=== PATIENT | male | born 1945 | race Caucasian/White ===

== ENCOUNTER 2023-12-20 21:39 | Inpatient (IN) | payer OTHER, MEDICARE ==
[~2023-12-20] VITALS: Ht 177.8 cm; Wt 75.7 kg
[~2023-12-20 21:39] MED LIST: DOXYCYCLINE HY100 MG PO; PREDNISONE20 MG PO
[2023-12-20 21:53] LABS: BASOPHILS 0.2 % (0-2); EOSINOPHILS 1.3 % (0-6); HEMATOCRIT 36.1 % (35.0-50.0); HEMOGLOBIN 11.6 g/dL (12.0-18.0); LYMPHOCYTES 6.9 % (24-44); MCH 31.6 (27-36); MCHC 32.2 g/dl (30-36); MONOCYTES 6.1 % (0-12); NEUTROPHILS 85.5 % (39-80); PLATELET COUNT 128 K/uL (140-440); RBC 3.68 M/ul (4.3-5.7)
[2023-12-20] MEDS ORDERED: METOPROLOL TARTRATE 5 MG/5 ML VIAL IV ONE (22:00)
[2023-12-20] MEDS ORDERED: FUROSEMIDE 100 MG/10 ML VIAL IV ONE (22:00)
[2023-12-20] MEDS ORDERED: ELIQUIS2.5 MG PO (22:07)
[2023-12-20] MEDS ORDERED: PREDNISONE10 MG PO (22:07)
[2023-12-20 22:14] LABS: LACTIC ACID, BLOOD 2.1 mmol/L (0.4-2.0)
[2023-12-20] MEDS ORDERED: IBUPROFEN 600 MG TAB PO ONE (22:15)
[2023-12-20] MEDS ORDERED: ACETAMINOPHEN 500 MG TAB PO ONE (22:15)
[2023-12-20] MEDS ORDERED: CEFTRIAXONE/SODIUM CHLORIDE 2 GM/100 ML PIGGYBACK IV ONE (22:15)
[2023-12-20 22:16] LABS: HCO3, BLOOD GAS 51.5 mmol/L (22-26); O2 SATURATION, BLOOD GAS 96.8 % (95.0-100.0); PCO2, BLOOD GAS 82.9 mmHg (35-45); PH, BLOOD GAS 7.41 (7.35-7.45); PO2, BLOOD GAS 81 mmHg (80-100); TOTAL CO2, BLOOD GAS 53.9
[2023-12-20 22:20] LABS: OXYGEN RECEIVED, BLOOD GAS 12L
[2023-12-20 22:21] LABS: ALBUMIN 2.7 g/dL (3.4-5.0); ALBUMIN/GLOBULIN RATIO 0.77 (1.1-2.4); BILIRUBIN, TOTAL 0.3 ng/dL (0.2-1.0); BUN/CREATININE RATIO 27.05 (6.0-28.6); CALCIUM 8.5 mg/dL (8.5-10.1); CREATININE, SERUM 0.85 mg/dL (0.70-1.30); POTASSIUM 3.8 mmol/L (3.5-5.1); PROTEIN, TOTAL 6.2 g/dL (6.4-8.2)
[2023-12-20 22:22] LABS: ANION GAP -3.2 (7-21)
[2023-12-20 22:30] LABS: INFLUENZA B NAA NEGATIVE (NEGATIVE); RESPIRATORY SYNCYTIAL VIR NAA NEGATIVE (NEGATIVE)
[2023-12-20] MEDS ORDERED: AZITHROMYCIN/DEXTROSE 500 MG/250 ML BAG IV ONE (22:45)
[2023-12-20] MEDS ORDERED: methylPREDNISolone SOD SUCC 125 MG/2 ML VIAL IV ONE (23:00)
[2023-12-20] MEDS ORDERED: ondansetron HCL 4 MG/2 ML VIAL IV PRN (23:15)
[2023-12-20] MEDS ORDERED: ALBUTEROL SULFATE 0.083% 3 ML VIAL INH PRN (23:15)
[2023-12-20] MEDS ORDERED: LIDOCAINE 2% VISCOUS 6 ML SYR TOP ONE (23:15)
[2023-12-20] MEDS ORDERED: ACETAMINOPHEN 325 MG TAB PO PRN (23:15)
[2023-12-20 23:38] VITALS: BP 134/73
--- NOTE | 2023-12-20 23:40 | NUR ---
PATIENT ARRIVED TO THE UNIT VIA STRETCHER. PATIENT MOVED OVER TO BED WITH ASSIST FOR CORD MANAGEMENT. PATIENT TOLERATING 5L OXYMASK. APPEARS MILDLY SOB WITH ACTIVITY. LUNG SOUNDS ARE COARSE WITH EXP WHEEZE. VS STABLE. PATIENT AAOX4. ABD IS MILDLY DISTENDED, NON TENDER. BOWEL SOUNDS ACTIVE. 2+ PITTING EDEMA NOTED IN GURPREET LOWER EXTREMITITES. PATIENT ABLE TO ANSWER SOME HISTORY QUESTIONS BUT DEFERS MANY QUESTIONS TO HIS SON, WHO IS NOT CURRENTLY HERE.
[2023-12-21] VITALS (15 sets, daily range): BP systolic 133–175; BP diastolic 57–79
--- NOTE | 2023-12-21 01:05 | NUR ---
PATIENT UP AND DOWN TO THE BATHROOM MULTIPLE TIMES TO VOID. PATIENT REQUIRES INCREASED O2 WITH ACTIVITY; UP TO 6L. AT REST PATIENT CURRENTLY ON 4L NC TO MAINTAIN Sp02 88-92%. RR 20-22. PATIENT NOW RESTING IN BED WITH HOB ELEVATED AND EYES CLOSED. CALL LIGHT IN REACH.
--- NOTE | 2023-12-21 02:29 | NUR ---
PT UP TO BSC, SBA. PT TOLERATED FAIR WITH SOB ONCE BACK IN BED. PT STATES NO OTHER NEEDS AT THIS STEPHEN. CALL LIGHT IN REACH.
--- NOTE | 2023-12-21 03:30 | NUR ---
PATIENT RESTING WITH EYES CLOSED. TOLERATING 5L NC. VS STABLE. CALL LIGHT IN REACH.
--- NOTE | 2023-12-21 05:00 | NUR ---
PATIENT UP TO THE BSC TO VOID. PATIENT TOLERATED WELL. TURNED TO 5L NC FOR ACTIVITY. PATIENT RETURNED TO BED. TOLERATING 3L NC. LUNG SOUNDS ARE TIGHT THROUGHOUT. PATIENT OFFERED A NEB TREATMENT, WHICH HE AGREES TO. RT CALLED. PATIENT APPEARS LESS SOB THAN PREVIOUSLY WHEN UP OUT OF BED. VS STABLE. CALL LIGHT IN REACH.
[2023-12-21 05:08] LABS: BASOPHILS 0.2 % (0-2); EOSINOPHILS 0.2 % (0-6); HEMATOCRIT 34.5 % (35.0-50.0); HEMOGLOBIN 11.2 g/dL (12.0-18.0); LYMPHOCYTES 3.5 % (24-44); MCH 31.6 (27-36); MCHC 32.6 g/dl (30-36); MCV 96.9 fl (81-99); MONOCYTES 2.3 % (0-12); NEUTROPHILS 93.8 % (39-80); PLATELET COUNT 117 K/uL (140-440); RBC 3.56 M/ul (4.3-5.7); RDW 15.7 (10.5-15.0)
[2023-12-21 05:38] LABS: ALBUMIN 2.5 g/dL (3.4-5.0); ALBUMIN/GLOBULIN RATIO 0.78 (1.1-2.4); BILIRUBIN, TOTAL 0.4 ng/dL (0.2-1.0); BUN/CREATININE RATIO 23.33 (6.0-28.6); CALCIUM 8.3 mg/dL (8.5-10.1); CREATININE, SERUM 0.9 mg/dL (0.70-1.30); MAGNESIUM 1.9 mg/dL (1.8-2.4); POTASSIUM 3.9 mmol/L (3.5-5.1); PROTEIN, TOTAL 5.7 g/dL (6.4-8.2)
[2023-12-21 05:39] LABS: ANION GAP -4.1 (7-21)
--- NOTE | 2023-12-21 07:10 | NUR ---
PATIENT IS SITTING UPRIGHT IN BED WITH EYES OPEN AND RESPIRATIONS ARE EVEN AND UNLABORED. REPORT RECEIVED FROM GRACE HUTCHINS. CALL LIGHT AND PERSONAL BELONGINGS ARE WITHIN REACH.
[2023-12-21] MEDS ORDERED: ALBUTEROL SULFATE 0.083% 3 ML VIAL INH PRN (07:30)
[2023-12-21] MEDS ORDERED: ALBUTEROL/IPRATROPIUM 3 ML NEB INH SCH ×2 (08:00)
--- NOTE | 2023-12-21 08:13 | NUR ---
PATIENT UP TO BSC, PT VOIDED 200, BACK TO BED. ICE WATER GIVEN, PT'S BREAKFAST SETUP. VITALS OBTAINED. PT HAS NO OTHER REQUESTS AT THIS TIME. CALL LIGHT WITHIN REACH.
[2023-12-21] MEDS ORDERED: CEFTRIAXONE/SODIUM CHLORIDE 2 GM/100 ML PIGGYBACK IV SCH (09:00)
[2023-12-21] MEDS ORDERED: AZITHROMYCIN 500 MG in DEXTROSE 5% 250 ML IV SCH ×2 (09:00→21:00)
[2023-12-21] MEDS ORDERED: ondansetron HCL 4 MG/2 ML VIAL IV PRN (09:30)
[2023-12-21] MEDS ORDERED: ACETAMINOPHEN 325 MG TAB PO PRN (09:30)
--- NOTE | 2023-12-21 09:45 | NUR ---
PATIENT IS LYING IN BED WITH THE HOB ELEVATED AND SPEAKING WITH SOMEONE ON THE PHONE. PATIENT GOT OFF THE PHONE. PATIENT IS ALERT AND ORIENTED TIMES FOUR. PATIENT IS ON 4 L NC AND IS CHRONICALLY ON 5 L NC. PATIENT HAS A COUGH BUT IT IS NON-PRODUCTIVE. PATIENT WITH CRAACKLES IN THE BASES BILATERALLY WITH DIMINISHED LUNG SOUNDS IN THE UPPER LOBES BILATERALLY. PATIENT WITH NO COMPLAINTS OF SOB. PATIENT WITH NORMAL S1 AND S2 ON AUSCULTATION. PATIENT IS IN SINUS RHYTHM ON THE ELECTRONICS ENGINEERING PROFESSOR. PATIENT WITH STRONG RADIAL AND PEDAL PULSES BILATERALLY. CAPILLARY REFILL IN THE UPPER AND LOWER EXTREMITIES IS LESS THAN 3 SECONDS BILATERALLY. PATIENT WITH 2+ PITTING EDEMA IN THE BILATERAL ANKLES/FEET. PATIENT IS ON A REGULAR DIET AND BOWEL TONES ARE ACTIVE IN ALL FOUR QUADRANTS. SENSATION INTACT WITH NUMBNESS AND TINGLING IN THE HANDS AND FEET. PATIENT STATES THIS IS NORMAL FOR HIME. IV SITE FLUSHED WITH 10 ML NORMAL SALINE AND IS SALINE LOCKED. IV DRESSING IS CLEAN, DRY, AND INTACT. PATIENT WITH NO COMPLAINTS OF PAIN. SKIN WITH SCATTERED BRUISING NOTED WITH SMALL SCARS ON THE NOSE/FACE FROM PREVIOUS SKIN CANCER TREATMENT. PATIENT STATED NO FURTHER NEEDS AT THIS TIME. CALL LIGHT AND PERSONAL BELONGINGS ARE WITHIN REACH.
--- NOTE | 2023-12-21 10:29 | NUR ---
PATIENT IS LYING IN BED WITH HOB ELEVATED AND IS WATCHING TV AT THIS TIME. PATIENT WITH A VISITOR IN THE ROOM AT THIS TIME. CALL LIGHT AND PERSONAL BELONGINGS ARE WITHIN REACH.
[2023-12-21] MEDS ORDERED: IPRAT-ALBUT 0.5-3 ML INH (10:54)
[2023-12-21] MEDS ORDERED: ELIQUIS5 MG PO (10:55)
[2023-12-21] MEDS ORDERED: LIPITOR20 MG PO (10:55)
[2023-12-21] MEDS ORDERED: CARDIZEM CD180 MG PO (10:55)
[2023-12-21] MEDS ORDERED: ADVAIR 500-501 EACH INH (10:56)
[2023-12-21] MEDS ORDERED: OMEPRAZOLE20 MG PO (10:57)
[2023-12-21] MEDS ORDERED: NEURONTIN600 MG PO (10:57)
[2023-12-21] MEDS ORDERED: FLOMAX0.4 MG PO (10:58)
[2023-12-21] MEDS ORDERED: VENTOLIN HFA18 GM INH (10:59)
[2023-12-21] MEDS ORDERED: SPIRIVA RESPIMAT4 GM INH (10:59)
--- NOTE | 2023-12-21 11:00 | NUR ---
MED REC COMPLETE
--- NOTE | 2023-12-21 11:22 | NUR ---
PATIENT IS BACK TO BED AFTER USING THE BEDSIDE COMMODE. PATIENT VOID 200 ML YELLOW URINE AND HAD A MEDIUM AND FORMED BOWEL MOVEMENT. PATIENT STATED NO FURTHER NEEDS WHEN ASKED BY RN. CALL LIGHT AND PERSONAL BELONGINGS ARE WITHIN REACH.
[2023-12-21] MEDS ORDERED: PHARMACY RENAL DOSE ADJUSTMENT 1 DOSE MISC PO SCH (12:00)
--- NOTE | 2023-12-21 12:10 | NUR ---
RT IS IN THE ROOM AT THIS TIME AND DOING A BREATHING TREATMENT. RN SET UP THE PATIENT LUNCH TRAY IN THE ROOM. PATIENT STATED NO NEEDS AT THIS TIME., CALL LIGHT AND PERSONAL BELONGINGS ARE WITHIN REACH.
--- NOTE | 2023-12-21 13:17 | NUR ---
PATIENT IS LYING IN BED WITH EYES CLOSED AND RESPIRATIONS ARE EVEN AND UNLABORED. CALL LIGHT AND PERSONAL BELONGINGS ARE WITHIN REACH.
--- NOTE | 2023-12-21 14:05 | NUR ---
VITAL SIGNS TAKEN AND DOCUMENTED IN THE CHART. PATIENT IS LYING IN BED WITH EYES CLOSED AND RESPIRATIONS ARE EVEN AND UNLABORED. CALL LIGHT AND PERSONAL BELONGINGS ARE WITHIN REACH.
--- NOTE | 2023-12-21 14:54 | NUR ---
REPORT GIVEN TO GRACE WELCH FOR PATIENT TO TRANSFER TO THE MEDICAL-SURGICAL FLOOR.
--- NOTE | 2023-12-21 15:10 | NUR ---
BED BATH WIPE DOWN AND SHOWER CAP COMPLETE PRIOR TO TRANSFERRING PATIENT TO THE MEDICAL SURICAL UNIT. PATIENT TRANSFERRED TO THE FLOOR VIA THE CHAIR WITH A FRESH GOWN ON. PATIENT BELONGINGS RETURNED. PATIENT STATED NO FURTHER NEEDS TO RN WHEN ARRIVED TO ROOM 121. RN RETURNED TO THE CRITICAL CARE UNIT.
[2023-12-21] MEDS ORDERED: dilTIAZem HCL 180 MG CAPCR PO SCH (15:12)
--- NOTE | 2023-12-21 15:15 | NUR ---
PT ARRIVES TO ROOM IN CHAIR, RECEIVED REPORT FROM GRACE MART. PT ON TELE #6 PER ORDER. PT AMBULATES TO RESTROOM WITH SBA, BACK UP TO CHAIR AFTER RESTROOM. PT ON 6L O2 COMING TO ROOM. PT DENIES SOB. CHAIR ALARM ON FOR SAFETY. LUNG SOUNDS DIMINISHED IN THE BASES, FINE CRACKLES PRESENT ON L UPPER LOBE, CLEAR IN R UPPER LOBE. PT STATES NO NEEDS AT THIS TIME. CALL LIGHT WITHIN REACH.
--- NOTE | 2023-12-21 16:38 | NUR ---
RT AT THE BEDSIDE WORKING WITH PT. PT FAMILY AT THE BEDSIDE. PT DENIES ANY NEEDS AT THIS TIME, CALL LIGHT WITHIN REACH.
--- NOTE | 2023-12-21 17:30 | NUR ---
PT TELE READS HR IN 140s, THIS RN TO BEDSIDE. PT DENIES CHEST PAIN, SOB, FEELING OF PALPATATIONS. TELE READS AFIB RYTHYM AT THIS TIME. OTHER VSS AT THIS TIME. HR DECREASES TO 110-120 FOR APPROXIMATELY 5 MINUTES. HR INCREASES TO 120-130s, THIS RN CALLS DR. TAPIA WITH UPDATE ON PT STATUS. MD STATES TO GET EKG AND STATES HE WILL BE AT BEDSIDE TO ASSESS.
[2023-12-21] MEDS ORDERED: METOPROLOL TARTRATE 5 MG/5 ML VIAL ONE (18:07)
[2023-12-21] MEDS ORDERED: METOPROLOL TARTRATE 5 MG/5 ML VIAL IV ONE (18:15)
[2023-12-21] MEDS ORDERED: MAGNESIUM SULFATE 2 GM/50 ML BAG IV ONE (18:15)
[2023-12-21] MEDS ORDERED: POTASSIUM CHLORIDE 10 MEQ TABCR PO ONE (18:15)
--- NOTE | 2023-12-21 19:10 | NUR ---
RECIEVED REPORT FROM GRACE WELCH. PATIENT AWAKE IN BED. IMAGING IN ROOM PERFORMING ECHO.
--- NOTE | 2023-12-21 20:26 | NUR ---
IN ROOM TO ADMINSTER MEDICATIONS, SEE E-MAR. ASSESSMENT COMPLETED. PATIENT RESTING IN BED. PT ON 3L VIA NC. TELE #[address] SINUS RHYTHM. PATIENT DENIES ANY PAIN. PATIENT DENIES ANY ADDITIONAL NEEDS AT THIS TIME. CALL LIGHT IN REACH. BED ALARM ACTIVE.
[2023-12-21] MEDS ORDERED: methylPREDNISolone SOD SUCC 125 MG/2 ML VIAL IV SCH (21:00)
[2023-12-21] MEDS ORDERED: GABAPENTIN 300 MG CAP PO SCH (21:00)
[2023-12-21] MEDS ORDERED: TAMSULOSIN HCL 0.4 MG CAP PO SCH (21:00)
[2023-12-21] MEDS ORDERED: APIXABAN 5 MG TAB PO SCH (21:00)
[2023-12-21] MEDS ORDERED: ATORVASTATIN 20 MG TAB PO SCH (21:00)
--- NOTE | 2023-12-21 21:54 | EKG ---
[facility] [address] [facility] [place], [place] [address] Signed Sinus tachycardia with premature supraventricular complexes Right bundle branch block Left anterior fascicular block Bifascicular block Septal infarct , age undetermined Abnormal ECG No previous ECGs available Confirmed by Jayson Tapia MD () on 12/21/2023 9:54:36 PM Electronically Signed By: JAYSON TAPIA MD 12/21/23 2154 PATIENT NAME: ODESSA MUÑOZ Electrocardiogram DATE OF : 49 PHYSICIAN: JAYSON TAPIA MD REPORT #: [id number] REPORT IS CONFIDENTIAL AND NOT TO BE RELEASED WITHOUT AUTHORIZATION
--- NOTE | 2023-12-21 22:02 | NUR ---
IN ROOM TO ADMINSTER MEDICATIONS, SEE E-MAR. PATIENT REQUESTS TO USE BATHROOM. PATIENT AMBULATES TO THE BATHROOM AND VOIDS WITHOUT DIFFICULTY. PATIENT RETURNS TO BED. PATIENT ON 3L VIA NC. PATIENT DENIES ADDITIONAL NEEDS AT THIS TIME. CALL LIGHT IN REACH. BED ALARM ACTIVE.
--- NOTE | 2023-12-21 22:02 | EKG ---
[facility] [address] [facility] [place] [address] Signed Atrial fibrillation with rapid ventricular response Left axis deviation Right bundle branch block Abnormal ECG When compared with ECG of 20-DEC-2023 21:46, Atrial fibrillation has replaced Sinus rhythm Criteria for Septal infarct are no longer present ST now depressed in Inferior leads Confirmed by Jayson Tapia MD () on 12/21/2023 10:02:40 PM Electronically Signed By: JAYSON TAPIA MD 12/21/232201 PATIENT NAME: ODESSA MUÑOZ Electrocardiogram DATE OF : 49 PHYSICIAN: JAYSON TAPIA MD REPORT #: [id number] REPORT IS CONFIDENTIAL AND NOT TO BE RELEASED WITHOUT AUTHORIZATION
--- NOTE | 2023-12-21 23:30 | NUR ---
CONTACTED PROVIDER FOR CLARIFICATION ON LOPRESSOR ORDER. TELEPHONE ORDER RECIEVED, VERIFIED BY READ-BACK.
[2023-12-21] MEDS ORDERED: METOPROLOL TARTRATE 5 MG/5 ML VIAL IV PRN (23:45)
--- NOTE | 2023-12-21 23:50 | NUR ---
IN ROOM TO ROUND ON PATIENT. PATIENT RESTING WITH EYES CLOSED. RESPIRATIONS EVEN AND UNLABORED. PATIENT ABX INFUSION COMPLETE. PT SALINE LOCKED PER ORDER. PATIENT DENIES ADDITIONAL NEEDS AT THIS TIME, RETURNS TO SLEEP. CALL LIGHT IN REACH. BED ALARM ACTIVE.
[2023-12-22 01:45] VITALS: BP 135/56
--- NOTE | 2023-12-22 01:50 | NUR ---
PATIENT ASLEEP IN BED, RESPIRATIONS EVEN AND UNLABORED. 3L NC IN PLACE. OXYGEN SATURATION 94%.
--- NOTE | 2023-12-22 01:52 | NUR ---
PATIENT ASSESSMENT COMPLETED. PATIENT RESTING IN BED. URINAL EMPTIED. PATIENT DENIES PAIN AND DENIES SHORTNESS OF BREATH. 3L NC IN PLACE, PATIENT OXYGEN SATURATION 94%. PATIENT DENIES ADDITONAL NEEDS AT THIS TIME. CALL LIGHT IN REACH. BED ALARM ACTIVE.
[2023-12-22 01:54] VITALS: BP 135/56
--- NOTE | 2023-12-22 03:20 | NUR ---
IN ROOM DUE TO CPOX ALARM. O2 SATURATION READING AT 83%. PATIENT AWAKE IN BED AFTER USING URINAL. 3L NC IN PLACE. O2 SATURATION RETURNED TO 91% WITH REST. PATIENT DENIES ADDITIONAL NEEDS AT THIS TIME. CALL LIGHT IN REACH. BED ALARM ACTIVE.
[2023-12-22 05:17] VITALS: BP 148/55
[2023-12-22 05:27] VITALS: BP 148/55
[2023-12-22 05:29] LABS: BASOPHILS 0.1 % (0-2); HEMATOCRIT 33.3 % (35.0-50.0); LYMPHOCYTES 3.6 % (24-44); MCH 31.8 (27-36); MCV 96.4 fl (81-99); MONOCYTES 0.9 % (0-12); NEUTROPHILS 95.4 % (39-80); PLATELET COUNT 119 K/uL (140-440); RBC 3.45 M/ul (4.3-5.7); RDW 16.8 (10.5-15.0)
--- NOTE | 2023-12-22 05:30 | NUR ---
IN ROOM TO ROUND ON PATIENT. VITALS ASSESSED. DAILY WEIGHT OBTAINED. PATIENT DENIES PAIN. PATIENT DENIES ADDITIONAL NEEDS AT THIS TIME. PATIENT RESTING IN BED. CALL LIGHT IN REACH. BED ALARM ACTIVE.
[2023-12-22 05:44] LABS: ALBUMIN 2.3 g/dL (3.4-5.0); ALBUMIN/GLOBULIN RATIO 0.66 (1.1-2.4); BILIRUBIN, TOTAL 0.3 ng/dL (0.2-1.0); BUN/CREATININE RATIO 23.86 (6.0-28.6); CALCIUM 8.5 mg/dL (8.5-10.1); CREATININE, SERUM 0.88 mg/dL (0.70-1.30); MAGNESIUM 2.2 mg/dL (1.8-2.4); PHOSPHORUS, INORGANIC 2.9 mg/dL (2.5-4.9); PROTEIN, TOTAL 5.8 g/dL (6.4-8.2)
--- NOTE | 2023-12-22 06:49 | NUR ---
3L NC IN PLACE. OXYGEN SATURATION 89%. PATIENT SLEEPING. RESPIRATIONS EVEN AND UNLABORED. CALL LIGHT IN REACH. BED ALARM ACTIVE.
--- NOTE | 2023-12-22 07:00 | NUR ---
Pt report received from RNs Calvin Burks and Lashon Glover. Pt is resting supine in bed, eyes closed, mouth agape, breathing is regular even, and non-labored. Side rails up x4, call light in reach. White board updated.
--- NOTE | 2023-12-22 08:04 | NUR ---
DECREASED O2 TO 2 LPM.
--- NOTE | 2023-12-22 08:30 | NUR ---
In with pt for CPOX alarm at 85% on 2LPM (RT advised he had decreased the liters to 2 while the pt was sleeping to monitor him at that level). Pt was resting with eyes closed, breathing regular, even, and non-labored, skin appropriately colored, warm and dry. Pt awakened easily to voice. SPO2 stayed at 85% so I increased his O2 to 3LPM for breakfast, which increased his SPO2 to 87%. After breakfast, pt requested to use the toilet, line and tube mgmt only. When pt came back to bed, and was reconnected to the CPOX (he was on 3LPM at this time), his SPO2 was 77%. RT was in the room as well and assessed the pt at this time. RT advised to have the pt on 3LPM at rest and 5LPM with activity and explained this to the pt. Pt verbalized understanding. Pt back to bed. Call light in reach.
[2023-12-22] MEDS ORDERED: CEFTRIAXONE/SODIUM CHLORIDE 2 GM/100 ML PIGGYBACK IV SCH (09:00)
[2023-12-22] MEDS ORDERED: PANTOPRAZOLE SODIUM 40 MG TABEC PO SCH (09:00)
[2023-12-22 09:06] VITALS: BP 145/84
[2023-12-22 09:07] VITALS: BP 145/84
--- NOTE | 2023-12-22 09:44 | NUR ---
In with pt for abx completion. Family at bedside. IV flushed with 10ml NS, good blood return, no pain, no redness, no swelling or leaking. IV S/L. Pt decreased to 2LPM while in bed as his SPO2 was at 97%. Call light in reach. Pt denies any needs at this time.
[2023-12-22] MEDS ORDERED: AZITHROMYCIN250 MG PO (11:17)
[2023-12-22] MEDS ORDERED: CEFDINIR300 MG PO (11:17)
[2023-12-22] MEDS ORDERED: PREDNISONE20 MG PO (11:18)
[2023-12-22] MEDS ORDERED: predniSONE 20 MG TAB PO ONE (11:30)
[2023-12-22] MEDS ORDERED: METOPROLOL TARTRATE 5 MG/5 ML VIAL IV SCH (22:00)
== END 2023-12-22 12:55 | disposition home or self-care (01) | DRG 871 ==
LOC: ED 21:39 → CCU 21:40 → MS 12-21 09:32 → CCU 12-21 09:32 → MS 12-21 15:36
PROVIDERS: Family Medicine; ADMIT Family Medicine; ATTEND Family Medicine
PROC: 3E03329 Introduction of Other Anti-infective into Peripheral Vein, Percutaneous Approach (ICD-10-PCS; principal; 2023-12-20)
PROC: 5A09357 Assistance with Respiratory Ventilation, Less than 24 Consecutive Hours, Continuous Positive Airway Pressure (ICD-10-PCS; 2023-12-20)
DX: A41.9 Sepsis, unspecified organism (principal); I50.33 Acute on chronic diastolic (congestive) heart failure; J18.9 Pneumonia, unspecified organism; J96.21 Acute and chronic respiratory failure with hypoxia; J44.0 Chronic obstructive pulmonary disease with (acute) lower respiratory infection; J44.1 Chronic obstructive pulmonary disease with (acute) exacerbation; R65.20 Severe sepsis without septic shock; Z66 Do not resuscitate; I48.91 Unspecified atrial fibrillation; F17.210 Nicotine dependence, cigarettes, uncomplicated; I11.0 Hypertensive heart disease with heart failure; Z99.81 Dependence on supplemental oxygen; Z79.01 Long term (current) use of anticoagulants; Z71.6 Tobacco abuse counseling; Z79.52 Long term (current) use of systemic steroids; Z90.2 Acquired absence of lung [part of]
CPT/HCPCS: 36415; 36600; 71045; 80053; 82803; 83605; 83735; 83880; 84100; 84484; 85025; 85060; 85379; 87040; 87502; 93005; 93010; 93306; 94640; 94660; 94760; 94762; 96365; 96366; 96367; 96375; 96376; 99285-25; A9270; G0378; J0456; J0696; J1940; J2919; J3475; J7060; J7512; U0002

== ENCOUNTER 2024-02-09 09:54 | Emergency (ER) | payer OTHER, MEDICARE ==
[~2024-02-09] VITALS: Ht 177.8 cm; Wt 80.6 kg
[~2024-02-09 09:54] MED LIST changes: +ADVAIR 500-501 EACH INH; +AZITHROMYCIN250 MG PO; +CARDIZEM CD180 MG PO; +CEFDINIR300 MG PO; +ELIQUIS2.5 MG PO; +ELIQUIS5 MG PO; +FLOMAX0.4 MG PO; +IPRAT-ALBUT 0.5-3 ML INH; +LIPITOR20 MG PO; +NEURONTIN600 MG PO; +OMEPRAZOLE20 MG PO; +PREDNISONE10 MG PO; +SPIRIVA RESPIMAT4 GM INH; +VENTOLIN HFA18 GM INH
[2024-02-09] MEDS ORDERED: OXYCODONE/APAP 5/325 TAB PO ONE (10:30)
[2024-02-09] MEDS ORDERED: DOXYCYCLINE HY100 MG PO (11:12)
[2024-02-09] MEDS ORDERED: CEPHALEXIN500 M1 PO (11:12)
[2024-02-09 11:23] VITALS: BP 128/52
== END 2024-02-09 11:25 | disposition home or self-care (01) ==
LOC: ED 09:54
DX: L03.116 Cellulitis of left lower limb (principal); I11.0 Hypertensive heart disease with heart failure; I50.9 Heart failure, unspecified; J44.9 Chronic obstructive pulmonary disease, unspecified; I48.91 Unspecified atrial fibrillation; Z85.118 Personal history of other malignant neoplasm of bronchus and lung; Z90.2 Acquired absence of lung [part of]; Z79.01 Long term (current) use of anticoagulants; Z79.899 Other long term (current) drug therapy
CPT/HCPCS: 93971; 99283-25

== ENCOUNTER 2024-04-22 09:26 | Inpatient (IN) | payer OTHER, MEDICARE ==
[~2024-04-22] VITALS: Ht 177.8 cm; Wt 84.2 kg
[2024-04-22] VITALS (12 sets, daily range): BP systolic 92–139; BP diastolic 54–75
[~2024-04-22 09:26] MED LIST changes: +CEPHALEXIN500 M1 PO; -ELIQUIS5 MG PO
[2024-04-22] MEDS ORDERED: ALBUTEROL/IPRATROPIUM 3 ML NEB ONE (09:36)
[2024-04-22 09:45] LABS: BASOPHILS 0.5 % (0-2); HEMOGLOBIN 12.7 g/dL (12.0-18.0); LYMPHOCYTES 14.8 % (24-44); MCH 32.3 (27-36); MCHC 33.4 g/dl (30-36); MCV 96.6 fl (81-99); MONOCYTES 11.5 % (0-12); NEUTROPHILS 72.2 % (39-80); PLATELET COUNT 164 K/uL (140-440); RBC 3.93 M/ul (4.3-5.7); RDW 14.6 (10.5-15.0)
[2024-04-22] MEDS ORDERED: methylPREDNISolone SOD SUCC 125 MG/2 ML VIAL IV ONE (09:45)
[2024-04-22] MEDS ORDERED: ondansetron HCL 4 MG/2 ML VIAL IV ONE (09:45)
[2024-04-22] MEDS ORDERED: IPRATROPIUM BROMIDE 2.5 ML VIAL INH ONE (09:45)
[2024-04-22] MEDS ORDERED: ALBUTEROL/IPRATROPIUM 3 ML NEB INH ONE (10:00)
[2024-04-22 10:07] LABS: ALBUMIN 3.1 g/dL (3.4-5.0); ALBUMIN/GLOBULIN RATIO 0.74 (1.1-2.4); ANION GAP 1.7 (7-21); BILIRUBIN, TOTAL 0.4 mg/dL (0.2-1.0); BUN/CREATININE RATIO 10.97 (6.0-28.6); CALCIUM 8.7 mg/dL (8.5-10.1); CREATININE, SERUM 0.82 mg/dL (0.70-1.30); POTASSIUM 3.7 mmol/L (3.5-5.1); PROTEIN, TOTAL 7.3 g/dL (6.4-8.2)
[2024-04-22 10:22] LABS: LACTIC ACID, BLOOD 1.7 mmol/L (0.4-2.0)
[2024-04-22 10:52] LABS: INFLUENZA B NAA NEGATIVE (NEGATIVE); RESPIRATORY SYNCYTIAL VIR NAA NEGATIVE (NEGATIVE)
[2024-04-22] MEDS ORDERED: POTASSIUM CHLORIDE 10 MEQ TABCR PO ONE (11:00)
[2024-04-22] MEDS ORDERED: FUROSEMIDE 20 MG/2 ML VIAL IV ONE ×2 (11:00→17:00)
[2024-04-22] MEDS ORDERED: AZITHROMYCIN 250 MG TAB PO ONE (11:00)
[2024-04-22 11:43] LABS: PH, VENOUS 7.296 (7.31-7.41)
[2024-04-22] MEDS ORDERED: APIXABAN 5 MG TAB PO SCH (12:33)
[2024-04-22] MEDS ORDERED: dilTIAZem HCL 180 MG CAPCR PO SCH (12:33)
[2024-04-22] MEDS ORDERED: CEFTRIAXONE SODIUM 1 GM in SODIUM CHLORIDE 0.9% 100 ML IV SCH (12:45)
[2024-04-22] MEDS ORDERED: CEFTRIAXONE SODIUM 1 GM VIAL IV ONE (12:59)
[2024-04-22] MEDS ORDERED: methylPREDNISolone SOD SUCC 40 MG/ML VIAL IV SCH (14:00)
--- NOTE | 2024-04-22 14:00 | NUR ---
PATIENT ARRIVED FROM ED WITH ED STAFF. VIEWED SKIN WITH ELLIOTT EDWARDS. SEE DOCUMENTATION. PATIENT ARRIVED ON BIPAP WITH RN AND RT. THIS RN IN TO GET REPORT. PATIENT DROWSY UPON ARRIVAL AND HAVING DIFFICULTY STAYING AWAKE. MD IS AWARE OF FINDINGS. THIS RN WILL BE IN AT THE BEDSIDE TO ASSIST PATIENT ENEDED. BLADDER SCAN DONE AND SHOWS >1000. PATIENT NOT WAKEFUL ENOUGH TO VOID ON HIS OWN. MD NOTIFIED AND MCMILLAN CATH ORDERED.
[2024-04-22] MEDS ORDERED: ALBUTEROL SULFATE 0.5% 2.5 MG/0.5 ML VIAL ONE (14:11)
[2024-04-22] MEDS ORDERED: ALBUTEROL SULFATE 0.083% 3 ML VIAL INH PRN (14:30)
[2024-04-22] MEDS ORDERED: ALBUTEROL SULFATE 0.5% 2.5 MG/0.5 ML VIAL INH ONE (14:30)
[2024-04-22] MEDS ORDERED: ACETAMINOPHEN 325 MG TAB PO PRN (15:30)
--- NOTE | 2024-04-22 15:51 | NUR ---
PATIENT OBTUNDED PER NURSING STAFF AND FAMILY NOT CURRENTLY PRESENT. NURSING STAFF STATE PATIENT LIVES WITH SON AND SON STATES PATIENT IS USUALLY ABLE TO COMPLETE ADL'S INDEPENDENTLY. SON MANAGES MEDS. WILL COMPLETE ASSESSMENT FURTHER WHEN EITHER PATIENT IS AWAKE OR FAMILY PRESENT. IF NEEDED, WILL CALL SON FOR FURTHER INFORMATION.
[2024-04-22] MEDS ORDERED: ALBUTEROL/IPRATROPIUM 3 ML NEB INH SCH (16:00)
--- NOTE | 2024-04-22 16:13 | NUR ---
RN AND STUDENT RN IN TO DO IV START. IV STARTED WITH NO ISSUES. PATIENT REMAINS LETHARGIC. PATIENT WOKEN TO STERNAL RUB ONLY AND QUICKLY BACK TO SLEEP. RT NOTIFIED THAT PATIENT REMAINS VERY DROWSY AND VERY DIMINISHED AIR MOVEMENT EVEN WITH BIPAP IN PLACE. RT IN TO EVALUATE.
[2024-04-22 16:36] LABS: BASE EXCESS, BLOOD GAS 14.8 mmol/L (-2-2); HCO3, BLOOD GAS 43.8 mmol/L (22-26); O2 SATURATION, BLOOD GAS 96.4 % (95.0-100.0); PCO2, BLOOD GAS 81.9 mmHg (35-45); PH, BLOOD GAS 7.34 (7.35-7.45); TOTAL CO2, BLOOD GAS 46.3
[2024-04-22 18:28] LABS: BILIRUBIN, URINE NEGATIVE (negative); BLOOD/HGB, URINE LARGE (Negative); KETONE, URINE NEGATIVE (Negative); LEUK ESTERASE, URINE NEGATIVE (negative); NITRITE, URINE NEGATIVE (negative)
[2024-04-22 18:33] LABS: BACTERIA, URINE NONE SEEN /hpf (negative); CASTS, URINE NONE SEEN \\lpf; COLLECTION TYPE, URINE CLEAN CATCH; CRYSTALS, URINE NONE SEEN (0-1+); EPITHELIAL CELLS, URINE SQUAMOUS 1+ /lpf (0-1+); REFLEX CULTURE, URINE No (No)
--- NOTE | 2024-04-22 19:50 | NUR ---
HANDOFF REPORT RECEIVED FROM DAY SHIFT RN. PATIENT RESTING IN BED WITH BIPAP ON. VITAL SIGNS STABLE. PATIENT HAS NO NEEDS AT THIS TIME. CALL LIGHT IN REACH.
[2024-04-22] MEDS ORDERED: dilTIAZem HCL 180 MG CAPCR PO ONE (20:00)
[2024-04-22] MEDS ORDERED: METOPROLOL TARTRATE 5 MG/5 ML VIAL IV SCH (20:00)
[2024-04-22] MEDS ORDERED: BUDESONIDE 0.5 MG/2 ML VIAL INH SCH (20:00)
--- NOTE | 2024-04-22 20:25 | NUR ---
PATIENT PROVIDED WITH SCHEDULED MEDICATIONS PER EMAR. PATIENT TAKEN OFF BIPAP, SWALLOWS ORAL MEDICATIONS WITH NO CONCERNS. PATIENT PLACED BACK ON BIPAP. THIS RN REMAINS AT BEDSIDE.
--- NOTE | 2024-04-22 20:50 | NUR ---
PATIENT ASSESSMENT COMPLETE. PATIENT RESTING IN BED, AWAKENS WITH VERBAL STIMULI. PATIENT REMAINS ON BIPAP 16/8 AND 40% FIO2. PATIENT SPO2 96%. PATIENT LUNG SOUNDS DIMINISHED THROUGHOUT. PATIENT MCMILLAN CATH INTACT, DRAINING CLEAR YELLOW URINE. MCMILLAN CARE DONE. 3+ EDEMA NOTED IN BILAT FEET. PATIENT DENIES FEELING NAUSEOUS OR ANY PAIN AT THIS TIME. PATIENT PROVIDED WITH A DRINK OF WATER. PATIENT UPDATED ON PLAN OF CARE FOR THE NIGHT. PATIENT ALERT AND ORIENTED X3, CONFUSED ON WHAT DAY IT IS. PATIENT EASILY REORIENTED. PATIENT HAS NO NEEDS AT THIS TIME. CALL LIGHT IN REACH.
[2024-04-22] MEDS ORDERED: TAMSULOSIN HCL 0.4 MG CAP PO SCH (21:00)
--- NOTE | 2024-04-22 22:10 | NUR ---
patient resting in bed with eyes closed, RR 16. patient remains on BIPAP, settings unchanged. no distress noted. patient has no needs at this time, call light in reach.
[2024-04-23] VITALS (16 sets, daily range): BP systolic 101–149; BP diastolic 56–78
--- NOTE | 2024-04-23 01:04 | NUR ---
PATIENT ASSESSMENT COMPLETE. NO NEW CHANGES AT THIS TIME. PATIENT REMAINS ON BIPAP, SETTINGS UNCHANGED. PATIENT TOLERATING WELL. PATIENT IV SITES WNL AND SALINE LOCKED. MCMILLAN CARE DONE. PATIENT PROVIDED WITH SIPS OF WATER. PATIENT DENIES ANY NAUSEA OR PAIN. PATIENT HAS NO FURTHER NEEDS AT THIS TIME. CALL LIGHT IN REACH.
--- NOTE | 2024-04-23 02:25 | NUR ---
patient states he has a 8/10 headache. PRN Tylenol given per EMAR. patient has no further needs at this time. call light in reach.
--- NOTE | 2024-04-23 03:25 | NUR ---
patient resting in bed with eyes closed, RR 15. patient remains on BIPAP settings unchanged. no distress noted. patient has no needs at this time. call light in reach.
--- NOTE | 2024-04-23 04:25 | NUR ---
RT CALLED AND AT BEDSIDE TO ASSESS BIPAP ALARMS. NO NEW CHANGES AT THIS TIME. PATIENT REMAINS ON BIPAP AT 16/8 AND 40% FIO2. PATIENT SPO2 96%. PATIENT HAS NO NEEDS AT THIS TIME. CALL LIGHT IN REACH.
--- NOTE | 2024-04-23 05:19 | NUR ---
patient provided with sips of water per request. patient has no further needs at this time. call light within reach.
[2024-04-23 05:21] LABS: PH, VENOUS 7.479 (7.31-7.41)
[2024-04-23 05:22] LABS: BASOPHILS 0.2 % (0-2); EOSINOPHILS 0.5 % (0-6); HEMATOCRIT 32.2 % (35.0-50.0); HEMOGLOBIN 10.9 g/dL (12.0-18.0); LYMPHOCYTES 6.9 % (24-44); MCH 32.4 (27-36); MCHC 33.9 g/dl (30-36); MCV 95.4 fl (81-99); MONOCYTES 2.4 % (0-12); PLATELET COUNT 144 K/uL (140-440); RBC 3.37 M/ul (4.3-5.7); RDW 14.3 (10.5-15.0)
[2024-04-23 05:32] LABS: ANION GAP 3.3 (7-21); BUN/CREATININE RATIO 20.61 (6.0-28.6); CALCIUM 8.7 mg/dL (8.5-10.1); CREATININE, SERUM 0.97 mg/dL (0.70-1.30); MAGNESIUM 2.1 mg/dL (1.8-2.4); POTASSIUM 5.3 mmol/L (3.5-5.1)
--- NOTE | 2024-04-23 06:02 | NUR ---
patient taken off BIPAP and placed on 5L high flow O2. patient SPO2 92%. patient provided with pudding and fresh ice water per request. patient vital signs stable. patient has no further needs at this time. call light in reach.
[2024-04-23] MEDS ORDERED: CEFTRIAXONE SODIUM 1 GM VIAL IV ONE (07:58)
[2024-04-23] MEDS ORDERED: BUDESONIDE 0.5 MG/2 ML VIAL INH SCH (08:00)
--- NOTE | 2024-04-23 08:00 | NUR ---
REPORT RECIVED FROM SOLID PLASTERER RN. PATIENT RESTING IN BED ON 4L NC. PATIENT ALERT AND ORIENTED. PATIENT DOES NOT REMEMBER THE SITUATION FROM YESTERDAY.
--- NOTE | 2024-04-23 08:37 | NUR ---
PATIENT EATING BREAKFAST IN BED ON 4L NC. SPO2 WENT DOWN TO 87% TURNED O2 TO 5L. SPO2 RETURNED TO 92%. PATIENT ALERT AND ORIENTED. CALL LIGHT AT BEDSIDE NO OTHER NEEDS AT THIS TIME.
[2024-04-23] MEDS ORDERED: AZITHROMYCIN 250 MG TAB PO SCH (09:00)
[2024-04-23] MEDS ORDERED: PANTOPRAZOLE SODIUM 40 MG TABEC PO SCH (09:12)
[2024-04-23] MEDS ORDERED: FUROSEMIDE 20 MG/2 ML VIAL IV ONE (09:15)
[2024-04-23] MEDS ORDERED: SENNOSIDES/DOCUSATE 1 EA TAB PO SCH (10:26)
--- NOTE | 2024-04-23 10:42 | NUR ---
UR CLINICAL REVIEW: 2MN SOCO, MEETS INPT FOR COPD EXACERBATION, IV STEROIDS, IV DIURESIS, BIPAP FOR RESP INTERVENTION MEDICARE INPT 04/22/2024 @ 1226 ORDER MATCHES REG NO AUTH FOR MEDICARE PER RULES PLAN TO DC TO HOME WHEN STABLE.
[2024-04-23] MEDS ORDERED: PHARMACY RENAL DOSE ADJUSTMENT 1 DOSE MISC PO SCH (12:00)
--- NOTE | 2024-04-23 12:01 | NUR ---
PATIENT SITTING UP EATING LUNCH. WITH EATING PATIENT HAS TO BE ON 5L NC TO MAINTAIN OXYGEN 88-90 SPO2. PATIENT SITTING UP IN THE CHAIR. MCMILLAN CATHETER IN PLACE DRAINING CLEAR YELLOW URINE.
--- NOTE | 2024-04-23 13:19 | NUR ---
PATIENT HELPED BACK TO BED. OXYGEN INCREASED TO 6 L WHILE MOVING. FRESH ICE WATER AND COFFEE GIVEN.
--- NOTE | 2024-04-23 14:00 | NUR ---
INTO SEE PATIENT AND SON PORFIRIO AT BEDSIDE. PERSONAL INFORMATION REVIEWED. PATIENT LIVES WITH SON IN A HOUSE. RAMP TO GET INTO THE HOUSE. PATIENT HAS SCOOTER IF NEEDED. PATIENT HAS OXYGEN 3-5 LITERS BASELINE GETS IT THROUGH [employer]. WALKS WITH OXYGEN NO CANE, WALKER OR WHEELCHAIR. PATIENT DRIVES AT BASELINE. PATIENT HAS PRIMARY CARE AT [facility]. DENIES DIFFCULTY PAYING UTILITLIES OR OBTAINING FOOD. NO QUESITIONS OR CM NEEDS AT THIS TIME. SON WILL TAKE PATIENT HOME AT DISCHARGE.
--- NOTE | 2024-04-23 14:27 | NUR ---
REPORT RECEIVED FROM GRACE YANG FROM [facility]U.
[2024-04-23] MEDS ORDERED: dilTIAZem HCL 180 MG CAPCR PO ONE (15:00)
[2024-04-23] MEDS ORDERED: GABAPENTIN 300 MG CAP PO SCH (15:00)
--- NOTE | 2024-04-23 15:00 | NUR ---
VS TAKEN AND DOCUMENTED IN THE CHART. PATIENT IS ON 3.5L NC WITH CPOX AT BEDSIDE. PERSONAL BELONGINGS MOVED TO ROOM. BIPAP PRESENT AT BEDSIDE. PATIENT STATED NO FURTHER NEEDS AT THIS TIME. CALL LIGHT AND PERSONAL BELONGINGS WITHIN REACH.
--- NOTE | 2024-04-23 15:20 | NUR ---
PATIENT REPORT GIVEN TO MANUELITO EDWARDS ON THE MEDICAL UNIT AND TRANSFERED TO ROOM 125 VIA BED. PATIENT PLAN FO CARE REVIEWED. PATIENT ON 3L NC AT REST AND 6L WITH ACTIVITY. PATIENT ALERT AND PATIENTS SON AT THE BEDSIDE AND UPDATED ON PLAN OF CARE. ALL BELONGINGS SENT WITH PATIENT. NO OTEHR QUESTIONS AT THIS TIME.
--- NOTE | 2024-04-23 16:09 | NUR ---
PATIENT IS LYING IN BED WITHHOB ELEVATED. RT IS IN THE ROOM AT THIS TIME. BREATHING TREATMENT BEING ADMINISTERED. CPOX AT BEDSIDE. PATIENT IS WATCHING TV. PATIENT STATED NO FURTHER NEEDS AT THIS TIME. CALL LIGHT AND PERSONAL BELONGINGS ARE WITHIN REACH.
[2024-04-23] MEDS ORDERED: SINGULAIR10 MG PO (16:22)
[2024-04-23] MEDS ORDERED: XARELTO20 MG PO (16:23)
[2024-04-23] MEDS ORDERED: ELIQUIS5 MG PO (16:49)
[2024-04-23] MEDS ORDERED: OCUVITE BLUE L1 EACH PO (16:50)
[2024-04-23] MEDS ORDERED: VIAGRA100 MG PO (16:51)
--- NOTE | 2024-04-23 16:51 | NUR ---
MED REC COMPLETE
--- NOTE | 2024-04-23 17:30 | NUR ---
FOCUS ASSESSMENT COMPLETED. PATIENT O2 SATS AT 89% ON 3.5L NC, TURNED O2 DOWN TO PATIENT BASELINE OF 3L NC. PATIENT LUNG SOUNDS DIMINISHED THROUGHOUT. PATIENT REQUESTING JUICE, ORANGE JUICE PROVIDED. PATIENT DENIES ANY OTHER NEEDS AT THIS TIME. CALL LIGHT AND PERSONAL BELONGINGS WITHIN REACH.
--- NOTE | 2024-04-23 18:10 | NUR ---
PATIENT SITTING UP IN BED WATCHING TV. MCMILLAN REMOVED PER DR ALMANZAR. PATIENT TOLERATED WELL. PATIENT DUE TO VOID. PATIENT DENIES ANY OTHER NEEDS AT THIS TIME. CALL LIGHT AND PERSONAL BELONGINGS WITHIN REACH.
--- NOTE | 2024-04-23 20:15 | NUR ---
PATIENT SITTING UP IN BED, ALERT AND ORIENTED VISITNG WITH HIS SON PORFIRIO. PATIENT IS ON 3L REGULAR N.C. NOW. URINAL AT BEDSIDE. PATIENT REPORTS NO PAIN. ASSESSMENT COMPLETE, NOTED WHEEZES THROUGH OUT LUNG RALPH.
--- NOTE | 2024-04-23 20:33 | NUR ---
PORFIRIO IS ON A 3L NC SITTING AT A 45 DEGREE ANGLE. RT STOPPED NEB TEMPORARILY BECAUSE PORFIRIO RECEIVED A PHONE CALL THAT HE SAID HE NEEDED TO TAKE. CORNET LEVEL 5 DONE W/OI DIFFICULTY.
[2024-04-23] MEDS ORDERED: methylPREDNISolone SOD SUCC 40 MG/ML VIAL IV SCH (21:00)
--- NOTE | 2024-04-23 21:56 | NUR ---
TRANSFER AND PUMPHOUSE OPERATOR CHIEF OBTAINED VITALS AND I&O. PT STATES NO NEEDS AT THIS TIME. CALL LIGHT WITHIN REACH.
--- NOTE | 2024-04-23 23:30 | NUR ---
PATIENT SITTING UP IN BED ALERT AND ORIENTED, HE SAYS HE DOES NOT FEEL SLEEPY, HE IS HAS NO COMPLAINT OF PAIN OR NAUSEA, HE SAID, "I THINK MAYBE I WILL BE ABLE TO PEE PRETTY SOON." HE HAS NO COMPLAINTS AT THIS TIME.
--- NOTE | 2024-04-24 00:17 | NUR ---
PATIENT CALLED NURSES STATION TO REQUEST ASSISTANCE TO USE THE BATHROOM.
--- NOTE | 2024-04-24 02:22 | NUR ---
PORFIRIO WAS PLACED ON A SALTER HFNC OFF THE WALL AT 5L DUE SPO2 DESATURATION WITH A REGULAR NC.
--- NOTE | 2024-04-24 02:39 | NUR ---
PATIENT CALLED NURSES STATION TO REQUEST MORE WATER.
[2024-04-24 05:56] LABS: BASOPHILS 0.2 % (0-2); EOSINOPHILS 0.1 % (0-6); HEMATOCRIT 31.7 % (35.0-50.0); HEMOGLOBIN 10.8 g/dL (12.0-18.0); LYMPHOCYTES 4.9 % (24-44); MCH 32.2 (27-36); MCHC 34.1 g/dl (30-36); MCV 94.4 fl (81-99); MONOCYTES 3.7 % (0-12); NEUTROPHILS 91.1 % (39-80); PLATELET COUNT 183 K/uL (140-440); RBC 3.36 M/ul (4.3-5.7); RDW 14.3 (10.5-15.0)
[2024-04-24 06:06] LABS: ANION GAP 4.8 (7-21); BUN/CREATININE RATIO 28.86 (6.0-28.6); CALCIUM 8.4 mg/dL (8.5-10.1); CREATININE, SERUM 0.97 mg/dL (0.70-1.30); MAGNESIUM 2.2 mg/dL (1.8-2.4); POTASSIUM 4.8 mmol/L (3.5-5.1)
[2024-04-24 06:14] VITALS: BP 133/58
--- NOTE | 2024-04-24 06:24 | NUR ---
PATIENT SLEEPING, ALERT OT RN AT BEDSIDE, V/S TAKEN AM ASSESSMENT COMPLETE. PATIENT HAS NO REQUESTS OR CONCERS, HE DID NOT SLEEP UNTIL LATE EARLY THIS AM AROUND 0300. PATIENT IS CURRENTLY ON 3L OXYGEN N.C. 94% OXYGEN SATURATION. HE HAS NO REQUESTS THIS AM, CALL LIGHT IN REACH.
--- NOTE | 2024-04-24 07:25 | NUR ---
REPORT RECEIVED FROM GRACE DHILLON. PATIENT RESTING WITH EYES CLOSED. PATIENT ON 3L NC AT 94%. CALL LIGHT AND PERSONAL BELONINGS WITHIN REACH. CPOX AT BEDSIDE.
[2024-04-24] MEDS ORDERED: ALBUTEROL/IPRATROPIUM 3 ML NEB INH SCH (08:00)
[2024-04-24] MEDS ORDERED: CEFTRIAXONE SODIUM 1 GM VIAL IV ONE (08:41)
--- NOTE | 2024-04-24 08:55 | NUR ---
PATIENT UP TO CHAIR FOR BREAKFAST. PATIENT MEDICATED PER EMAR. FRESH COFFEE PROVIDED PER PATIENT REQUEST. PATIENT DENIES ANY OTHER NEEDS AT THIS TIME. PATIENT UP TO 6LPM AT THIS TIME DUE TO DESAT IN THE 70'S WHEN GETTING UP TO CHAIR AND EATING. CALL LIGHT AND PERSONAL BELONGINGS WITHIN REACH.
[2024-04-24] MEDS ORDERED: PREDNISONE20 MG PO (09:58)
[2024-04-24] MEDS ORDERED: LEVOFLOXACIN750 MG PO (10:01)
--- NOTE | 2024-04-24 10:20 | NUR ---
PATIENT ASSESSMENT COMPLETE. PATIENT IS ALERT AND ORIENTED X4. PATIENT IS SBA WITHOUT ASSITIVE DEVICES. PATIENT HAS 3+ EDEMA TO BILATERAL FEET AND 2+ EDEMA TO BILATERAL LEGS. PATIENT AND SON STATE THIS IS HIS BASELINE AT HOME. PATIENT RADIAL AND PEDAL PULSES ARE STRONG BILATERALLY WITH CAP REFILL <3 SECONDS TO UPPER AND LOWER EXTREMETIES. PATIENT HEART TONES ARE NORMAL UPON AUSCULTATION. IV X2 FLUSHED WITH 10ML OF NS EACH AND DRESSINGS ARE INTACT. PATIENT IS ON 2G SODIUM DIET. BOWEL TONES ARE ACTIVE IN ALL 4 QUADRANTS. PATIENT IS ON 3-4L NC AT REST, BUT IS TURNED UP TO 5-6L WITH ACTIVITY AND EATING. PATIENT LUNG SOUNDS ARE DIMINISHED WITH EXPIRATORY WHEEZE THROUGHOUT. PATIENT HAS SCAB TO MID/UPPER BACK WITH SOME REDNESS NOTED. PATIENT DENIES ANY PAIN AT THIS TIME. FRESH COFFEE PROVIDED TO PATIENT. PATIENT AND SON DENY ANY FURTHER NEEDS AT THIS TIME. CALL LIGHT AND PERSONAL BELONGINGS WITHIN REACH.
--- NOTE | 2024-04-24 10:29 | NUR ---
PT NOT AVAILABLE FOR VISIT. PROVIDED PRAYER.
[2024-04-24 10:34] VITALS: BP 147/66
[2024-04-24 10:49] VITALS: BP 147/66
--- NOTE | 2024-04-24 11:05 | NUR ---
INTO SEE PATIENT. IMM LETTER COMPLETED AT 1105. PATIENT STATES HES READY TO DISCHARGE. SON TO PICK HIM UP AT DISCHARGE. PERSONAL OXYGEN TANK TO BE WITH PATIENT AT TIME OF DISCHARGE.
--- NOTE | 2024-04-24 13:54 | EKG ---
[facility] [address] [facility] [place] [address] Signed Sinus tachycardia with frequent premature ventricular complexes and fusion complexes Left axis deviation Right bundle branch block Anteroseptal infarct , age undetermined Abnormal ECG When compared with ECG of 21-DEC-2023 17:47, Sinus rhythm has replaced Atrial fibrillation Anteroseptal infarct is now present ST no longer depressed in Inferior leads Non-specific change in ST segment in Lateral leads Confirmed by Rae Samano MD ([id number]) on 04/24/2024 1:54:27 PM Electronically Signed By: RAE SAMANO MD 04/24/24 1354 PATIENT NAME: ODESSA MUÑOZ Electrocardiogram DATE OF : 49 PHYSICIAN: RAE SAMANO MD REPORT #: [id number] REPORT IS CONFIDENTIAL AND NOT TO BE RELEASED WITHOUT AUTHORIZATION
== END 2024-04-24 12:10 | disposition home or self-care (01) | DRG 193 ==
LOC: ED 09:26 → MS 12:41 → CCU 12:41 → MS 04-23 15:02
PROVIDERS: Emergency Medicine; ADMIT Student in an Organized Health Care Education/Training Program; ATTEND Student in an Organized Health Care Education/Training Program
PROC: 5A09357 Assistance with Respiratory Ventilation, Less than 24 Consecutive Hours, Continuous Positive Airway Pressure (ICD-10-PCS; principal; 2024-04-22)
DX: J18.9 Pneumonia, unspecified organism (principal); I50.33 Acute on chronic diastolic (congestive) heart failure; J96.21 Acute and chronic respiratory failure with hypoxia; J96.22 Acute and chronic respiratory failure with hypercapnia; J44.1 Chronic obstructive pulmonary disease with (acute) exacerbation; E87.1 Hypo-osmolality and hyponatremia; E87.20 Acidosis, unspecified; J44.0 Chronic obstructive pulmonary disease with (acute) lower respiratory infection; I11.0 Hypertensive heart disease with heart failure; K21.9 Gastro-esophageal reflux disease without esophagitis; N40.0 Benign prostatic hyperplasia without lower urinary tract symptoms; I48.91 Unspecified atrial fibrillation; Z85.118 Personal history of other malignant neoplasm of bronchus and lung; Z85.828 Personal history of other malignant neoplasm of skin; Z90.89 Acquired absence of other organs; Z79.51 Long term (current) use of inhaled steroids; Z79.2 Long term (current) use of antibiotics; Z79.01 Long term (current) use of anticoagulants; Z79.899 Other long term (current) drug therapy; Z99.81 Dependence on supplemental oxygen
CPT/HCPCS: 36415; 36600; 51702; 51798; 71045; 80048; 80053; 81001; 82803; 83605; 83735; 83880; 84484; 85025; 87502; 93005; 93010; 94640; 94660; 94667; 94668; 94762; 94799; 96374; 96375; 97161; 97165; 99285-25; A9270; J1940; J2405; J2919; U0002

== ENCOUNTER 2024-05-26 14:44 | Emergency (ER) | payer OTHER ==
[~2024-05-26] VITALS: Ht 177.8 cm; Wt 84.2 kg
[~2024-05-26 14:44] MED LIST changes: +ELIQUIS5 MG PO; +LEVOFLOXACIN750 MG PO; +OCUVITE BLUE L1 EACH PO; +SINGULAIR10 MG PO; +VIAGRA100 MG PO; +XARELTO20 MG PO
[2024-05-26] MEDS ORDERED: ALBUTEROL SULFATE 0.5% 2.5 MG/0.5 ML VIAL ONE (15:07)
[2024-05-26] MEDS ORDERED: ALBUTEROL SULFATE 0.5% 2.5 MG/0.5 ML VIAL INH ONE (15:15)
[2024-05-26] MEDS ORDERED: ALBUTEROL/IPRATROPIUM 3 ML NEB INH ONE (15:15)
[2024-05-26] MEDS ORDERED: methylPREDNISolone SOD SUCC 125 MG/2 ML VIAL IV ONE (15:15)
[2024-05-26 15:33] LABS: BASOPHILS 0.4 % (0-2); EOSINOPHILS 0.2 % (0-6); HEMATOCRIT 36.2 % (35.0-50.0); HEMOGLOBIN 12.1 g/dL (12.0-18.0); LYMPHOCYTES 15.9 % (24-44); MCHC 33.4 g/dl (30-36); MCV 92.9 fl (81-99); MONOCYTES 12.3 % (0-12); NEUTROPHILS 71.2 % (39-80); PLATELET COUNT 170 K/uL (140-440); RBC 3.89 M/ul (4.3-5.7); RDW 14.2 (10.5-15.0)
[2024-05-26 15:58] LABS: ALBUMIN 2.5 g/dL (3.4-5.0); ALBUMIN/GLOBULIN RATIO 0.61 (1.1-2.4); ANION GAP 2.4 (7-21); BILIRUBIN, TOTAL 0.4 mg/dL (0.2-1.0); BUN/CREATININE RATIO 16.25 (6.0-28.6); CALCIUM 8.8 mg/dL (8.5-10.1); CREATININE, SERUM 0.8 mg/dL (0.70-1.30); POTASSIUM 4.4 mmol/L (3.5-5.1); PROTEIN, TOTAL 6.6 g/dL (6.4-8.2)
[2024-05-26 16:02] LABS: CORONAVIRUS COVID-19 AG NEGATIVE (NEGATIVE); INFLUENZA A AG NEGATIVE (NEGATIVE); INFLUENZA B AG NEGATIVE (NEGATIVE)
[2024-05-26] MEDS ORDERED: FUROSEMIDE 40 MG/4 ML VIAL IV ONE (18:00)
[2024-05-26] MEDS ORDERED: LASIX40 MG PO (18:52)
[2024-05-26] MEDS ORDERED: PREDNISONE20 MG PO (18:53)
[2024-05-26 19:07] VITALS: BP 146/57
--- NOTE | 2024-05-26 20:46 | EKG ---
[facility] [address] [facility] [place] [address] Signed Normal sinus rhythm Left axis deviation Right bundle branch block Abnormal ECG When compared with ECG of 22-APR-2024 09:34, fusion complexes are no longer present premature ventricular complexes are no longer present Criteria for Anteroseptal infarct are no longer present Confirmed by Jayson Tapia MD () on 05/26/2024 8:45:56 PM Electronically Signed By: JAYSON TAPIA MD 05/26/242045 PATIENT NAME: ODESSA MUÑOZ Electrocardiogram DATE OF : 49 PHYSICIAN: JAYSON TAPIA MD REPORT #: [id number] REPORT IS CONFIDENTIAL AND NOT TO BE RELEASED WITHOUT AUTHORIZATION
== END 2024-05-26 19:10 | disposition home or self-care (01) ==
LOC: ED 14:44
PROVIDERS: Emergency Medicine
DX: I11.0 Hypertensive heart disease with heart failure (principal); I50.33 Acute on chronic diastolic (congestive) heart failure; J44.1 Chronic obstructive pulmonary disease with (acute) exacerbation; I48.91 Unspecified atrial fibrillation; Z79.01 Long term (current) use of anticoagulants; Z79.899 Other long term (current) drug therapy; Z99.81 Dependence on supplemental oxygen
CPT/HCPCS: 36415; 71045; 80053; 83880; 84484; 85025; 93005; 93010; 94640; 96374; 96375; 99285-25; J1940; J2919

== ENCOUNTER 2024-06-08 09:44 | Emergency (ER) | payer OTHER ==
[~2024-06-08] VITALS: Ht 177.8 cm; Wt 80.0 kg
[~2024-06-08 09:44] MED LIST changes: +LASIX40 MG PO
[2024-06-08 10:13] LABS: BASOPHILS 0.6 % (0-2); EOSINOPHILS 1.4 % (0-6); HEMATOCRIT 36.2 % (35.0-50.0); HEMOGLOBIN 12.1 g/dL (12.0-18.0); LYMPHOCYTES 12.2 % (24-44); MCH 31.1 (27-36); MCHC 33.6 g/dl (30-36); MCV 92.6 fl (81-99); MONOCYTES 9.2 % (0-12); NEUTROPHILS 76.6 % (39-80); PLATELET COUNT 254 K/uL (140-440); RDW 14.5 (10.5-15.0)
[2024-06-08 10:40] LABS: ALBUMIN 2.1 g/dL (3.4-5.0); ALBUMIN/GLOBULIN RATIO 0.45 (1.1-2.4); ANION GAP 4.8 (7-21); BILIRUBIN, TOTAL 0.3 mg/dL (0.2-1.0); BUN/CREATININE RATIO 13.04 (6.0-28.6); CALCIUM 8.7 mg/dL (8.5-10.1); CREATININE, SERUM 0.92 mg/dL (0.70-1.30); MAGNESIUM 2.3 mg/dL (1.8-2.4); POTASSIUM 4.8 mmol/L (3.5-5.1); PROTEIN, TOTAL 6.8 g/dL (6.4-8.2)
[2024-06-08] MEDS ORDERED: CEFTRIAXONE SODIUM 2 GM in SODIUM CHLORIDE 0.9% 100 ML IV ONE (10:45)
[2024-06-08] MEDS ORDERED: AZITHROMYCIN 250 MG TAB PO ONE (10:45)
[2024-06-08] MEDS ORDERED: ZITHROMAX250 MG PO (11:29)
[2024-06-08] MEDS ORDERED: AMOX TR-K CLV1 EAC1 PO (11:29)
[2024-06-08 11:31] VITALS: BP 134/67
--- NOTE | 2024-06-08 19:13 | EKG ---
[facility] [address] [facility] [address] [place] [address] Signed Normal sinus rhythm Left axis deviation Right bundle branch block Abnormal ECG When compared with ECG of 26-MAY-2024 15:15, No significant change was found Confirmed by Rae Samano MD ([id number]) on 06/08/2024 7:12:45 PM Electronically Signed By: RAE SAMANO MD 06/08/241912 PATIENT NAME: ODESSA MUÑOZ S Electrocardiogram DATE OF : 49 PHYSICIAN: RAE SAMANO MD REPORT #: [id number] REPORT IS CONFIDENTIAL AND NOT TO BE RELEASED WITHOUT AUTHORIZATION
== END 2024-06-08 11:43 | disposition home or self-care (01) ==
LOC: ED 09:44
PROVIDERS: Emergency Medicine
DX: J18.0 Bronchopneumonia, unspecified organism (principal); I11.0 Hypertensive heart disease with heart failure; I50.9 Heart failure, unspecified; I48.91 Unspecified atrial fibrillation
CPT/HCPCS: 36415; 71045; 80053; 83735; 83880; 84484; 85025; 85379; 93005; 93010; 96365; 99285-25; J0696

== ENCOUNTER 2024-08-08 22:43 | Inpatient (IN) | payer OTHER ==
[~2024-08-08] VITALS: Ht 177.8 cm; Wt 83.2 kg
[~2024-08-08 22:43] MED LIST changes: +AMOX TR-K CLV1 EAC1 PO; -OCUVITE BLUE L1 EACH PO; +PRESERVISION A1 EAC3 PO; +ZITHROMAX250 MG PO
[2024-08-08 22:57] LABS: BASOPHILS 0.7 % (0.2-1.2); EOSINOPHILS 1.3 % (0.8-7.0); HEMATOCRIT 41.9 % (40.1-51.0); HEMOGLOBIN 12.7 g/dL (13.7-17.5); LYMPHOCYTES 30.2 % (21.8-53.1); MCH 31.4 PG (25.7-32.2); MCHC 30.3 g/dL (32.3-36.5); MCV 103.5 fL (79.0-92.2); MONOCYTES 9.8 % (5.3-12.2); NEUTROPHILS 57.1 % (34.0-67.9); PLATELET COUNT 123 K/uL (163-337); RBC 4.05 M/uL (4.63-6.08)
[2024-08-08 23:17] LABS: ALBUMIN 2.8 g/dL (3.4-5.0); ALBUMIN/GLOBULIN RATIO 0.65 (1.1-2.4); BILIRUBIN, TOTAL 0.3 mg/dL (0.2-1.0); BUN/CREATININE RATIO 18.36 (6.0-28.6); CALCIUM 8.3 mg/dL (8.5-10.1); CREATININE, SERUM 0.98 mg/dL (0.70-1.30); MAGNESIUM 2.2 mg/dL (1.8-2.4); PROTEIN, TOTAL 7.1 g/dL (6.4-8.2)
[2024-08-08] MEDS ORDERED: methylPREDNISolone SOD SUCC 125 MG/2 ML VIAL IV ONE (23:30)
[2024-08-08] MEDS ORDERED: CEFTRIAXONE SODIUM 2 GM in SODIUM CHLORIDE 0.9% 100 ML IV ONE (23:30)
[2024-08-08] MEDS ORDERED: FUROSEMIDE 40 MG/4 ML VIAL IV ONE (23:45)
[2024-08-09] VITALS (10 sets, daily range): BP systolic 113–155; BP diastolic 53–70
[2024-08-09 00:05] LABS: LACTIC ACID, BLOOD 0.8 mmol/L (0.4-2.0)
[2024-08-09] MEDS ORDERED: ACETAMINOPHEN 325 MG TAB PO PRN ×2 (00:45→12:30)
[2024-08-09] MEDS ORDERED: ondansetron HCL 4 MG/2 ML VIAL IV PRN ×2 (00:45→12:30)
[2024-08-09] MEDS ORDERED: ALBUTEROL SULFATE 0.083% 3 ML VIAL INH PRN (01:00)
[2024-08-09 05:32] LABS: BASOPHILS 0.5 % (0.2-1.2); EOSINOPHILS 0 % (0.8-7.0); HEMATOCRIT 41.4 % (40.1-51.0); HEMOGLOBIN 12.8 g/dL (13.7-17.5); LYMPHOCYTES 13.6 % (21.8-53.1); MCH 31.2 PG (25.7-32.2); MCHC 30.9 g/dL (32.3-36.5); MONOCYTES 2.1 % (5.3-12.2); NEUTROPHILS 82.9 % (34.0-67.9); PLATELET COUNT 122 K/uL (163-337)
[2024-08-09 05:52] LABS: ALBUMIN 2.8 g/dL (3.4-5.0); ALBUMIN/GLOBULIN RATIO 0.6 (1.1-2.4); BILIRUBIN, TOTAL 0.3 mg/dL (0.2-1.0); BUN/CREATININE RATIO 23.91 (6.0-28.6); CALCIUM 8.7 mg/dL (8.5-10.1); CREATININE, SERUM 0.92 mg/dL (0.70-1.30); MAGNESIUM 2.2 mg/dL (1.8-2.4); PROTEIN, TOTAL 7.5 g/dL (6.4-8.2)
[2024-08-09] MEDS ORDERED: methylPREDNISolone SOD SUCC 40 MG/ML VIAL IV SCH (06:00)
[2024-08-09] MEDS ORDERED: BUDESONIDE 0.5 MG/2 ML VIAL INH SCH (08:00)
[2024-08-09] MEDS ORDERED: ALBUTEROL/IPRATROPIUM 3 ML NEB INH SCH (08:00)
[2024-08-09] MEDS ORDERED: dilTIAZem HCL 180 MG CAPCR PO SCH (12:16)
[2024-08-09] MEDS ORDERED: AZITHROMYCIN 500 MG in DEXTROSE 5% 250 ML IV SCH (12:37)
[2024-08-09] MEDS ORDERED: predniSONE 20 MG TAB PO SCH (12:37)
[2024-08-09] MEDS ORDERED: FUROSEMIDE 40 MG TAB PO SCH (12:37)
[2024-08-09] MEDS ORDERED: guaiFENesin 600 MG TABCR PO PRN (12:45)
[2024-08-09] MEDS ORDERED: BENZONATATE 100 MG CAP PO PRN (12:45)
[2024-08-09] MEDS ORDERED: GABAPENTIN 300 MG CAP PO SCH (15:00)
[2024-08-09] MEDS ORDERED: APIXABAN 5 MG TAB PO SCH (21:00)
[2024-08-09] MEDS ORDERED: ATORVASTATIN 20 MG TAB PO SCH (21:00)
[2024-08-09] MEDS ORDERED: CEFTRIAXONE SODIUM 2 GM in SODIUM CHLORIDE 0.9% 100 ML IV SCH (21:00)
--- NOTE | 2024-08-09 22:36 | EKG ---
[facility] [address] [place] [address] Signed Normal sinus rhythm Left axis deviation Right bundle branch block Abnormal ECG When compared with ECG of 08-JUN-2024 10:04, Nonspecific T wave abnormality now evident in Anterior leads Confirmed by Jayson Tapia MD () on 08/09/2024 10:36:16 PM Electronically Signed By: JAYSON TAPIA MD 08/09/24 2236 PATIENT NAME: ODESSA MUÑOZ Electrocardiogram DATE OF : 49 PHYSICIAN: JAYSON TAPIA MD REPORT #: [id number] REPORT IS CONFIDENTIAL AND NOT TO BE RELEASED WITHOUT AUTHORIZATION
[2024-08-10] VITALS (10 sets, daily range): BP systolic 108–152; BP diastolic 49–71
[2024-08-10 06:04] LABS: BASOPHILS 0.1 % (0.2-1.2); EOSINOPHILS 0 % (0.8-7.0); HEMATOCRIT 39.9 % (40.1-51.0); HEMOGLOBIN 12.3 g/dL (13.7-17.5); LYMPHOCYTES 11.6 % (21.8-53.1); MCH 30.5 PG (25.7-32.2); MCHC 30.8 g/dL (32.3-36.5); MONOCYTES 5.5 % (5.3-12.2); NEUTROPHILS 82.4 % (34.0-67.9); PLATELET COUNT 139 K/uL (163-337); RBC 4.03 M/uL (4.63-6.08)
[2024-08-10 06:19] LABS: ALBUMIN 2.6 g/dL (3.4-5.0); ALBUMIN/GLOBULIN RATIO 0.6 (1.1-2.4); BILIRUBIN, TOTAL 0.2 mg/dL (0.2-1.0); BUN/CREATININE RATIO 40.17 (6.0-28.6); CALCIUM 8.5 mg/dL (8.5-10.1); CREATININE, SERUM 1.12 mg/dL (0.70-1.30); MAGNESIUM 2.5 mg/dL (1.8-2.4); PHOSPHORUS, INORGANIC 4.1 mg/dL (2.5-4.9); POTASSIUM 4.4 mmol/L (3.5-5.1); PROTEIN, TOTAL 6.9 g/dL (6.4-8.2)
[2024-08-10 06:22] LABS: ANION GAP 3.4 (7-21)
[2024-08-10] MEDS ORDERED: PHARMACY RENAL DOSE ADJUSTMENT 1 DOSE MISC PO SCH (12:00)
[2024-08-11] VITALS (11 sets, daily range): BP systolic 110–154; BP diastolic 52–65
[2024-08-11 05:55] LABS: HEMATOCRIT 38.1 % (40.1-51.0); HEMOGLOBIN 11.8 g/dL (13.7-17.5); MCH 30.6 PG (25.7-32.2); MCV 98.7 fL (79.0-92.2); PLATELET COUNT 138 K/uL (163-337); RBC 3.86 M/uL (4.63-6.08)
[2024-08-11 06:08] LABS: BANDS, MANUAL DIFF 5; LYMPHOCYTES, MANUAL DIFF 20; MONOCYTES, MANUAL DIFF 4; NEUTROPHILS, MANUAL DIFF 71
[2024-08-11 06:12] LABS: ALBUMIN 2.5 g/dL (3.4-5.0); ALBUMIN/GLOBULIN RATIO 0.66 (1.1-2.4); BILIRUBIN, TOTAL 0.2 mg/dL (0.2-1.0); BUN/CREATININE RATIO 40.69 (6.0-28.6); CALCIUM 8.2 mg/dL (8.5-10.1); CREATININE, SERUM 0.86 mg/dL (0.70-1.30); POTASSIUM 4.1 mmol/L (3.5-5.1); PROTEIN, TOTAL 6.3 g/dL (6.4-8.2)
[2024-08-11 06:13] LABS: ANION GAP 0.1 (7-21)
[2024-08-11 08:16] LABS: PH, VENOUS 7.456 (7.31-7.41)
[2024-08-11] MEDS ORDERED: XARELTO20 MG PO (10:58)
[2024-08-11] MEDS ORDERED: DALIRESP500 MCG PO (10:59)
[2024-08-11] MEDS ORDERED: FLOMAX0.4 MG PO (11:00)
[2024-08-11] MEDS ORDERED: OMEPRAZOLE20 MG PO (11:35)
[2024-08-11] MEDS ORDERED: VIAGRA100 MG PO (11:36)
[2024-08-11] MEDS ORDERED: TAMSULOSIN HCL 0.4 MG CAP PO SCH (13:07)
[2024-08-11] MEDS ORDERED: PANTOPRAZOLE SODIUM 40 MG TABEC PO SCH (13:08)
[2024-08-12] VITALS (11 sets, daily range): BP systolic 120–143; BP diastolic 55–79
[2024-08-12 05:51] LABS: HEMATOCRIT 39.8 % (40.1-51.0); HEMOGLOBIN 12.6 g/dL (13.7-17.5); MCH 31.6 PG (25.7-32.2); MCHC 31.7 g/dL (32.3-36.5); MCV 99.7 fL (79.0-92.2); PLATELET COUNT 151 K/uL (163-337); RBC 3.99 M/uL (4.63-6.08)
[2024-08-12 06:04] LABS: BANDS, MANUAL DIFF 5; EOSINOPHILS, MANUAL DIFF 1; LYMPHOCYTES, MANUAL DIFF 27; MONOCYTES, MANUAL DIFF 6; NEUTROPHILS, MANUAL DIFF 61
[2024-08-12 06:09] LABS: ALBUMIN 2.6 g/dL (3.4-5.0); ALBUMIN/GLOBULIN RATIO 0.65 (1.1-2.4); ANION GAP 1.1 (7-21); BILIRUBIN, TOTAL 0.2 mg/dL (0.2-1.0); BUN/CREATININE RATIO 30.68 (6.0-28.6); CALCIUM 8.5 mg/dL (8.5-10.1); CREATININE, SERUM 0.88 mg/dL (0.70-1.30); POTASSIUM 4.1 mmol/L (3.5-5.1); PROTEIN, TOTAL 6.6 g/dL (6.4-8.2)
[2024-08-12] MEDS ORDERED: Rivaroxaban 10 MG TAB PO SCH (08:00)
[2024-08-12] MEDS ORDERED: FUROSEMIDE 40 MG/4 ML VIAL IV ONE (11:15)
[2024-08-12] MEDS ORDERED: FUROSEMIDE 40 MG/4 ML VIAL ONE (11:25)
[2024-08-12] MEDS ORDERED: FUROSEMIDE 40 MG TAB PO SCH (13:00)
[2024-08-12] MEDS ORDERED: metroNIDAZOLE 250 MG TAB PO SCH (13:24)
[2024-08-12] MEDS ORDERED: ALBUMIN HUMAN 25% 100 ML BTL IV ONE (18:15)
[2024-08-12] MEDS ORDERED: Acetylcysteine 800 MG/4 ML VIAL INH SCH (20:00)
[2024-08-13] VITALS (11 sets, daily range): BP systolic 137–159; BP diastolic 58–75
[2024-08-13 05:56] LABS: BASOPHILS 0.2 % (0.2-1.2); EOSINOPHILS 0 % (0.8-7.0); HEMATOCRIT 39.7 % (40.1-51.0); HEMOGLOBIN 12.3 g/dL (13.7-17.5); LYMPHOCYTES 18.3 % (21.8-53.1); MCH 31.1 PG (25.7-32.2); MCV 100.3 fL (79.0-92.2); MONOCYTES 8.7 % (5.3-12.2); PLATELET COUNT 164 K/uL (163-337); RBC 3.96 M/uL (4.63-6.08)
[2024-08-13 06:17] LABS: ALBUMIN 2.9 g/dL (3.4-5.0); ALBUMIN/GLOBULIN RATIO 0.71 (1.1-2.4); ANION GAP 2.2 (7-21); BILIRUBIN, TOTAL 0.2 mg/dL (0.2-1.0); BUN/CREATININE RATIO 24.73 (6.0-28.6); CALCIUM 8.4 mg/dL (8.5-10.1); CREATININE, SERUM 0.93 mg/dL (0.70-1.30); MAGNESIUM 2.6 mg/dL (1.8-2.4); POTASSIUM 4.2 mmol/L (3.5-5.1)
[2024-08-13] MEDS ORDERED: dilTIAZem HCL 240 MG CAPCR PO SCH (09:00)
[2024-08-13] MEDS ORDERED: predniSONE 20 MG TAB PO SCH (09:00)
[2024-08-14 00:53] VITALS: BP 140/53
[2024-08-14 05:40] VITALS: BP 146/59
[2024-08-14 05:56] LABS: ALBUMIN 2.8 g/dL (3.4-5.0); ALBUMIN/GLOBULIN RATIO 0.74 (1.1-2.4); ANION GAP 4.1 (7-21); BILIRUBIN, TOTAL 0.3 mg/dL (0.2-1.0); BUN/CREATININE RATIO 23.15 (6.0-28.6); CALCIUM 8.5 mg/dL (8.5-10.1); CREATININE, SERUM 0.95 mg/dL (0.70-1.30); POTASSIUM 4.1 mmol/L (3.5-5.1); PROTEIN, TOTAL 6.6 g/dL (6.4-8.2)
[2024-08-14 09:23] VITALS: BP 152/73
[2024-08-14 10:00] VITALS: BP 152/73
[2024-08-14] MEDS ORDERED: FUROSEMIDE40 MG PO (11:34)
[2024-08-14] MEDS ORDERED: BENZONATATE100 MG PO (11:34)
[2024-08-14 12:12] VITALS: BP 122/56
[2024-08-14 12:29] VITALS: BP 122/56
== END 2024-08-14 12:20 | disposition home or self-care (01) | DRG 177 ==
LOC: ED 22:43 → MS 22:45
PROVIDERS: Internal Medicine; Student in an Organized Health Care Education/Training Program; ADMIT Family Medicine; ATTEND Family Medicine
DX: J69.0 Pneumonitis due to inhalation of food and vomit (principal); J96.21 Acute and chronic respiratory failure with hypoxia; J44.1 Chronic obstructive pulmonary disease with (acute) exacerbation; I11.0 Hypertensive heart disease with heart failure; I48.0 Paroxysmal atrial fibrillation; I50.9 Heart failure, unspecified; I45.10 Unspecified right bundle-branch block; F17.210 Nicotine dependence, cigarettes, uncomplicated; Z66 Do not resuscitate; Z79.01 Long term (current) use of anticoagulants; Z85.118 Personal history of other malignant neoplasm of bronchus and lung; Z85.828 Personal history of other malignant neoplasm of skin; Z90.2 Acquired absence of lung [part of]; Z98.890 Other specified postprocedural states
CPT/HCPCS: 36415; 71045; 71250; 71260; 80053; 82803; 83605; 83735; 83880; 84100; 84484; 85025; 87040; 93005; 93010; 94640; 94668; 94762; 94799; 97163; 97530; 97535; A9270; J0456; J0696; J1938; J2919; J7060; J7512; P9047; Q9967